=== PATIENT | male | born 1930 | race Caucasian/White ===

== ENCOUNTER 2016-10-18 13:56 | Emergency (ER) | payer OTHER ==
--- NOTE | ~2016-10-18 | CT71 ---
[facility] A Service of [facility] RADIOLOGY TEXT RESULTS PATIENT: DAMASO RAYMUNDO LOCATION: [facility] : [birth year] UNIT #: [id number] AGE: [address]: Lashonda Redmond MD SEX: M ORDER DR: [id number] [facility] [address] [place], [place] [address] [id number] E MR#: [id number] #: [id number] NAME: DAMASO RAYMUNDO : 1930 SEX: M STUDY DATE/TIME: 10/18/2016 15:24 UNIT: [facility] ROOM: STUDY DESCRIPTION: CT Head Wo Contrast Attending Physician: Lashonda Redmond M.D. Ordering Physician: Lashonda Redmond M.D. Primary Care Physician: Nora Dowell [facility] IMAGING REPORT This report is preliminary unless electronic signature is present EXAM CT head, 10/18/2016 HISTORY Found on ground after fall. Possible hit to head times today. TECHNIQUE CT head performed skull base through vertex without venous contrast. No comparisons. This CT exam was performed with one or more of the following radiation dose reduction techniques: automatic exposure control, adjustment of mA and/or kV according to patient size, and iterative reconstruction. FINDINGS Brainstem unremarkable. Cerebellum and cerebral hemispheres show overall preservation of linder matter-white matter differentiation. No hemorrhage. No evidence of acute cortical ischemia. Midline structures nondisplaced. Extensive periventricular and deep white matter tract hypodensities likely reflecting sequelae of chronic microvascular ischemia. No acute-appearing basal ganglia abnormality. Ventricles, cisterns and sulci show moderate generalized enlargement consistent with moderate generalized atrophy. Cavernous carotid and distal vertebral arterial calcifications. The intraorbital soft tissues are unremarkable. Visualized paranasal sinuses clear. Opacification of some left mastoid air cells. Correlate with any clinical indications of mastoid inflammation. There is mucosal thickening and/or fluid suggested in the left middle ear. This raises concern for possible left otitis media. No fracture. There is no evidence of acute extracranial soft tissue abnormality. [facility] A Service of [facility] RADIOLOGY TEXT RESULTS PATIENT: DAMASO RAYMUNDO LOCATION: [facility] : [birth year] UNIT #: [id number] AGE: [address]: Lashonda Redmond MD SEX: M ORDER DR: IMPRESSION 1. No acute abnormality is seen in the brain. If the patient has ongoing neurologic symptoms, consider followup imaging. 2. Chronic changes include the following: Extensive periventricular and deep white matter tract probable sequelae of chronic microvascular ischemia, moderate generalized atrophy, vascular calcifications. 3. No fracture. 4. Opacification of multiple left mastoid air cells. Correlate with any clinical signs or symptoms of mastoid inflammation. There is fluid or mucosal thickening in the left middle ear concerning for left otitis media. Please correlate clinically. Dictated by... Fredo Red M.D. THIS IS AN ELECTRONICALLY VERIFIED REPORT Fredo Red M.D. at 10/19/2016 10:21 AM Brennan TD: 10/19/2016 02:39 JOB #: [id number] MEDICAL IMAGING REPORT Page 1 of 1 COPY
== END 2016-10-18 17:08 | disposition home or self-care (01) ==
LOC: CED 13:56
DX: Z04.3 Encounter for examination and observation following other accident (principal); W18.30XA Fall on same level, unspecified, initial encounter; Z88.8 Allergy status to other drugs, medicaments and biological substances
CPT/HCPCS: 70450; 99284